=== PATIENT | male | born 1945 | race Caucasian/White ===

== ENCOUNTER 2016-10-23 23:01 | Inpatient (IN) | payer OTHER ==
[2016-10-23] MEDS ORDERED: IOPAMIDOL 370 (76%) 100 ML VIAL IV ONE (23:02)
[2016-10-23 23:52] LABS: ABSOLUTE NEUTROPHIL COUNT 3.6 K/mm3 (1.8-7.7); BASO % 0.7 % (0.2-1.0); EOS # 0.1 (0.0-0.5); EOS % 1.1 % (0.9-2.9); HEMATOCRIT 44.2 % (32.0-52.0); HEMOGLOBIN 15.1 gm/l (14.0-18.0); IMM NEUT # 0.1 K/mm3 (0-0.2); IMM NEUT% 0.9 % (0-1); LYMPH # 1.1 (1.0-4.8); LYMPH % 19.9 % (15-45); MEAN CELL VOLUME 92.3 fl (80.0-94.0); MEAN CORPUSCULAR HEMOGLOBIN 31.5 pg (27.0-31.0); MEAN CORPUSCULAR HGB CONC 34.2 g/dl (33.0-37.0); MEAN PLATELET VOLUME 10.3 fl (7.4-10.4); MONO # 0.7 (0.0-0.8); MONO % 12.5 % (4-12); NEUT % 64.9 % (43-75); PLATELET COUNT 98 K/mm3 (130-400)
[2016-10-24 00:03] LABS: ALB/GLOB RATIO 1.2 (>1.0); CALCIUM 8.8 mg/dL (8.6-10.3)
[2016-10-24 00:09] LABS: TROPONIN I 0.02 ng/ml (0.0-0.06)
[2016-10-24 00:12] LABS: CKMB ISOENZYME 1.6 ng/ml (0.6-6.3)
[2016-10-24] MEDS ORDERED: IBUPROFEN 600 MG TABLET ONE (00:12)
[2016-10-24] MEDS ORDERED: ALBUTEROL/IPRATROPIUM 2.5/0.5 MG 3 ML/EACH DOSE ONE ×2 (00:17→02:59)
[2016-10-24 04:09] VITALS: BMI 23.0
--- NOTE | 2016-10-24 07:31 | RAD ---
History: Cough with chest pain. Comparison: 03/27/2016. Technique: 2 views Findings: 2 views of the chest demonstrate evidence of prior median sternotomy. The heart size is stable. No focal infiltrate, effusion or pneumothorax is seen. The hilar and mediastinal structures are intact. Impression: 1. Prior median sternotomy. 2. No active intrathoracic process.
--- NOTE | 2016-10-24 07:38 | CT ---
Exam: CT angiogram chest with contrast Comparison: Radiographs 10/24/[address] abdomen 04/30/2011 History: Cough, hypoxemia and tachycardia. Technique: CT angiogram of the chest was obtained following the administration of 80 mL Isovue-370 intravenous contrast using a CT angiogram pulmonary embolism protocol which was supplemented with multiplanar 3-D reformations constructed at an independent workstation. Findings: Examination is mildly limited due to motion artifact. There is no evidence of acute pulmonary thromboembolic disease to the proximal subsegmental level. There is mild diffuse bronchial wall thickening. There is no focal consolidation. There is no significant mucous plugging or atelectasis. The mediastinal and hilar lymph nodes are more significant for number rather than size, and are most prominent within the right hilum measuring up to 1.2 cm in short axis diameter, which is just above the upper limits of normal. Some calcifications are seen within the subcarinal lymph node stations. Postsurgical changes of median sternotomy and CABG are noted. There is no pleural or pericardial effusion. Limited evaluation of the upper abdomen is without acute or concerning abnormality. IMPRESSION: 1. No evidence of acute pulmonary thromboembolic disease through the proximal subsegmental level. 2. Diffuse bronchial wall thickening without significant mucous plugging or atelectasis. 3. Mildly prominent mediastinal and hilar lymph nodes, right slightly greater than left, which are more significant for number rather than size although are mildly enlarged by size criteria. These are of uncertain etiology and significance. These may simply be reactive. Preliminary report transmitted to the emergency department from [facility] [facility] at 0239 hours 10/24/2016.
[2016-10-24] MEDS ORDERED: ACETAMINOPHEN 325 MG TABLET PO PRN (07:43)
[2016-10-24] MEDS ORDERED: MENTHOL/CETYLPYRD 1 EACH LOZENGE PO PRN (07:43)
[2016-10-24] MEDS ORDERED: BISACODYL 10 MG SUP PR PRN (07:43)
[2016-10-24] MEDS ORDERED: CALCIUM CARBONATE 500 MG TAB.CHEW PO PRN (07:43)
[2016-10-24] MEDS ORDERED: BLISTEX LIPSTICK 1 EACH TP PRN (07:43)
[2016-10-24] MEDS ORDERED: SODIUM CHLORIDE 0.9% 100 ML IV PRN (07:43)
[2016-10-24] MEDS ORDERED: MAGNESIUM HYDROXIDE 30 ML UDCUP PO PRN (07:43)
[2016-10-24] MEDS ORDERED: BISACODYL 5 MG TABLET.EC PO PRN (07:43)
[2016-10-24] MEDS ORDERED: INSULIN ASPART (DOSE) 100 UNITS/1 ML SUB-Q PRN (07:43)
[2016-10-24] MEDS ORDERED: SODIUM CHLORIDE 0.9% 1,000 ML IV SCH (07:45)
[2016-10-24] MEDS ORDERED: NICOTINE POLACRILEX 2 MG LOZENGE PO PRN (08:02)
[2016-10-24] MEDS ORDERED: PUMP TUBING ONE (08:31)
[2016-10-24] MEDS: INSULIN GLARGINE (DOSE) 100 UNITS/ML UNIT SUB-Q SCH (08:40)
[2016-10-24] MEDS: ENOXAPARIN SODIUM 40 MG/0.4 ML SYRINGE SUB-Q SCH (08:43)
[2016-10-24] MEDS: DOCUSATE SODIUM 100 MG CAPSULE PO SCH ×2 (08:45→20:32)
--- NOTE | 2016-10-24 09:03 | HP ---
Garrett R[place]em[place] [id number] DATE OF ADMISSION: 10/24/2016 CHIEF COMPLAINT: Cough. HISTORY OF PRESENT ILLNESS: The patient is a 71-year-old HIV positive male who presents regarding an approximately three day history of cough with dyspnea. He has also noted leg pains, left greater than right in his thighs. He describes chest congestion with minimal sputum noted. Sats in the emergency department were 87% to 89% on room air. He has had some exposure to illnesses with his granddaughter recently, however, in the emergency room his influenza test was negative. he notes some aching. He denies fevers. Denies falls, but was feeling a little dizzy. No vomiting. He does not have a significant prior history of dyspnea, but does smoke and has chronic obstructive pulmonary disease. PAST MEDICAL HISTORY: Remarkable for HIV, he reports his last CD4 count was 600 in April. He has been tested since then, but he has not heard the results. He has been HIV positive since 1987, history of smoking, chronic obstructive pulmonary disease, coronary artery disease with a myocardial infarction and a history of a bypass. He has diabetes mellitus type 2, but does not check his glucose regularly and is not sure if he takes any medicines for this, history of hypertension, history of posttraumatic stress disorder. PAST SURGICAL HISTORY: Remarkable for coronary artery bypass graft, right and left inguinal hernia repair, and a left inguinal hernia re-repair. He has had an appendectomy as well. ALLERGIES: LISTED CLINDAMYCIN AND REPORTED HISTORY OF ANAPHYLAXIS TO PENICILLIN. MEDICATIONS: He is not sure what he takes. He believes he takes: 1. Aspirin 81 mg daily. 2. Atazanavir 300 mg by mouth daily. 3. Clopidogril 75 mg by mouth daily. 4. Genvoya by mouth daily. 5. Guaiifenesin 400 mg by mouth three times daily for nasal drip and congestion. 6. Metoprolol tartrate 25 mg by mouth twice daily. 7. Pravastatin 20 mg half by mouth every evening. 8. Senna 8.6 mg by mouth twice daily as needed. 9. Sucralfate 10 gm by mouth three times daily with food. 10. Tamsulosin 0.4 mg at bedtime. SOCIAL HISTORY: He is . He lives in an house here at [place] with two cats. He has two kids and two grandkids. He is a of the [employer]. He smokes one pack of cigarettes per day. Denies alcohol use. Does use marijuana as needed. Amish: No particular mandaen affiliation. Hobbies: He used to collect bikes, but has not been as active recently. FAMILY HISTORY: Father at 78 of cancer of the esophagus or possibly mesothelioma. Mom at age 86. REVIEW OF SYSTEMS: Eyes are okay. Ears okay. He had tinnitus. Nose is okay. Mouth is okay. Teeth: He reports he only has a few left. No acute complaints. Neck has been okay. Chest: No particular pain, but he does note some abdominal discomfort possibly related to coughing hard. No heart complaints. No angina. No urinary complaints. No testicular complaints. He notes left thigh is somewhat achy and sore. He has some difficulty walking. He can feel dizzy at times and has some balance problems. Skin has been okay. No ankle swelling. Feet have been okay. He does report history of stroke in 1987 and had lost some of his vision particularly on the left and his central vision is affected as well and it is hard to read. He does not have a POLST form, but on discussion he wishes to be do not intubate, do not resuscitate. PHYSICAL EXAMINATION: GENERAL: Frail appearing male slightly hard of hearing and thin. VITAL SIGNS: Temperature 98.3, pulse 85, blood pressure 117/81, respirations 20, saturation 97% on 2 liters. HEENT: Head is normocephalic, atraumatic. Eyes are unremarkable, not icteric, but some slightly discoloration suggested. Ears: Some cerumen on the left, the right appears unremarkable. Nose is unremarkable without discharge. Mouth: He has a lower bridge and the upper edentulous. Posterior pharynx is unremarkable. NECK: Supple. No masses, no jugular venous distention, no thyromegaly. BACK: With adiposity noted at the upper back near the base of the neck, mild. No costovertebral angle tenderness to percussion noted. LUNGS: Slightly decreased breath sounds more on the right than the left, but no significant crackles are noted. Somewhat spastic cough is noted. HEART: Regular rate and rhythm. ABDOMEN: Reported some tenderness on the muscle wall in the right upper quadrant, but there is no rebound, no guarding. Bowel sounds are quiet, but present. GENITOURINARY: Deferred. EXTREMITIES: His thighs are thin, but there is no redness, no masses, no focal tenderness. Knees, ankles, feet are grossly unremarkable. No ulcerations, cellulitis, or other changes noted. Pulses are good. Hands are unremarkable. NEUROLOGICAL: Patient is oriented x3, but has difficulty listing his medicines. Some tremor noted and some generalized weakness with difficulty with mobility in bed noted. LABORATORY: White count 5.6, hemoglobin 15.1, platelets 98. Sodium 132, potassium 3.8, chloride 100, CO2 23, BUN 18, creatinine 1.2, glucose 287. AST 47, ALT 44, alk phos 76. Troponin 0.02, CK-MB 1.6, albumin 4.0, globulin 3.4. Influenza A and B testing are negative. DIAGNOSTICS: CT of the chest shows no pulmonary embolism, no effusion, no thoracic aortic aneurysm, some bronchial wall thickening, no focal consolidation, no pneumothorax, no pleural effusion, enlarged hilar lymph nodes, small calcified subcarinal lymph node noted. Chest x-ray sternotomy, no acute changes. EKG sinus tachycardia, occasional supraventricular premature contractions. ASSESSMENT AND PLAN: 1. Bronchitis with hypoxia and respiratory distress, suspect viral causes. Plan oxygen and monitor saturations. [facility] We wish to avoid drug interactions. We will holding on steroids and antibiotics for now and discussion IV whether to address this in a patient with a reported normal CD4 count. 2. Human immunosuppressive virus reported. Patient reports normal CD4 count. He does not volunteer his viral level. CD4 was reported to 600 last year. We will check records from [facility] to see if there are any other results such as viral load and more recent CD4 counts. At this point, if CD4 count is in normal range would not estimate him to be a special immunosuppression risk. 3. Diabetes mellitus type 2 with uncertain control. We will check an A1c. The patient does not check glucose and is not sure about his medicines. We will plan capillary blood glucoses with Lantus and sliding scale. We will also try to get records from [facility]. 4. History of coronary artery disease. Troponin normal. We will continue on aspirin. We will try to check on his regular medicines. 5. Do not intubate, do not resuscitate. Discussed today. 6. History of anaphylaxis to penicillin. Would prefer to avoid penicillins or cephalosporins in this case. 7. Smoking. The patient declines nicotine replacement, but will try to make available as needed. 8. Venous thrombosis prophylaxis. Anticipate enoxaparin. 9. Leg pain, uncertain significance. His exam is unremarkable and his CTA of the chest did not show any blood clots. We will check a CPK at this time. 10. Request for other labs and chart notes are still pending. JOB: [id number] CC: [facility] in [place]
[2016-10-24] MEDS: ALBUTEROL/IPRATROPIUM 2.5/0.5 MG 3 ML/EACH DOSE NEB PRN ×3 (11:07→20:24)
[2016-10-24] MEDS ORDERED: SENNOSIDES 8.6 MG TABLET PO PRN (11:49)
[2016-10-24] MEDS ORDERED: ATAZANAVIR SULFATE 300 MG PO SCH (12:00)
[2016-10-24] MEDS ORDERED: [UNRECOGNIZED DRUG - OTHER] PO SCH (12:00)
[2016-10-24] MEDS: CLOPIDOGREL BISULFATE 75 MG TABLET PO SCH (13:45)
[2016-10-24] MEDS: METOPROLOL TARTRATE 25 MG TABLET PO SCH ×2 (13:45→20:32)
[2016-10-24] MEDS: GUAIFENESIN 400 MG TABLET PO PRN ×2 (13:46→23:39)
[2016-10-24] MEDS ORDERED: SUCRALFATE 1 G TABLET PO SCH (16:00)
[2016-10-24 17:45] LABS: A1C-GLYCOHEMOGLOBIN 1.1 g/dl; HEMOGLOBIN-GLYCO 13.8 g/dl
[2016-10-24] MEDS ORDERED: PRAVASTATIN SODIUM 20 MG TABLET PO SCH (20:00)
[2016-10-25 06:15] LABS: ABSOLUTE NEUTROPHIL COUNT 3.4 K/mm3 (1.8-7.7); BASO % 0.5 % (0.2-1.0); EOS % 0.2 % (0.9-2.9); HEMATOCRIT 43.4 % (32.0-52.0); HEMOGLOBIN 14.7 gm/l (14.0-18.0); IMM NEUT% 0.3 % (0-1); LYMPH # 1.7 (1.0-4.8); LYMPH % 29.5 % (15-45); MEAN CELL VOLUME 93.3 fl (80.0-94.0); MEAN CORPUSCULAR HEMOGLOBIN 31.6 pg (27.0-31.0); MEAN CORPUSCULAR HGB CONC 33.9 g/dl (33.0-37.0); MONO # 0.6 (0.0-0.8); MONO % 10.5 % (4-12); PLATELET COUNT 88 K/mm3 (130-400)
[2016-10-25 06:24] LABS: ALB/GLOB RATIO 1.1 (>1.0); ALBUMIN 3.7 gm/dL (3.5-5.7); CALCIUM 8.6 mg/dL (8.6-10.3)
[2016-10-25] MEDS: INSULIN GLARGINE (DOSE) 100 UNITS/ML UNIT SUB-Q SCH (08:29)
[2016-10-25] MEDS: ENOXAPARIN SODIUM 40 MG/0.4 ML SYRINGE SUB-Q SCH (08:30)
[2016-10-25] MEDS ORDERED: ASPIRIN (ENTERIC COATED) 81 MG TABLET.EC PO SCH (09:00)
[2016-10-25] MEDS: CLOPIDOGREL BISULFATE 75 MG TABLET PO SCH (09:47)
[2016-10-25] MEDS: DOCUSATE SODIUM 100 MG CAPSULE PO SCH (09:47)
[2016-10-25] MEDS: METOPROLOL TARTRATE 25 MG TABLET PO SCH (09:47)
--- NOTE | 2016-10-25 10:27 | PDOC5 ---
ADMIT DATE: 10/24/16 DISCHARGE DATE: 10/25/16 ADMISSION DIAGNOSES: Bronchitis, COPD exacerbation PROCEDURES PERFORMED THIS HOSPITALIZATION: Chest CTA--no PE, bronchial wall thickening and lympadenopathy CONSULTATIONS: None HOSPITAL COURSE: This is a 71 year old who presented with a three day history of cough and dyspnea. He had mild hypoxemia. He was admitted for viral bronchitis and COPD exacerbation. On 10/25 he is not requiring O2 and feels that he is "99% better". - Exam Vital Signs Temperature 98.7 F 10/25/16 07:07 Pulse Rate 84 10/25/16 07:07 Respiratory Rate 18 10/25/16 07:07 Blood Pressure 126/76 10/25/16 07:07 O2 Saturation by Pulse Oximetry 95 10/25/16 08:34 Oxygen Delivery Method Room Air Oxygen Flow Rate 0 General: Alert, Oriented x3, Cooperative, No Acute Distress HEENT: Mucous membr. moist/pink Lungs: Other (poor air movement and slight exp wheezes throughout) Cardiovascular: Regular Rate and Rhythm Abdomen: Soft, No Tenderness, No Normal Bowel Sounds Extremities: Normal Pulses, No Edema Skin: Normal Color Neurological: Normal Speech Psych/Mental Status: Normal Mood - Results Laboratory 10/25/16 05:30 10/25/16 05:30 10/25/16 10/25/16 10/24/16 07:39 05:30 21:05 RBC 4.65 L MCH 31.6 H POC Capillary Glucose 169 H 163 H Hemoglobin A1c 10/24/16 10/24/16 10/24/16 16:46 11:40 08:50 RBC MCH POC Capillary Glucose 188 H 209 H Hemoglobin A1c 9.2 H - Problems:Assessment/Plan (1) Bronchitis Status: Acute Assessment/Plan: Acute Presumed viral infection, present on admit, improving, no O2 requirement. Had mild acute respiratory failure with saturation of 88% and O2 requirement at the time of admit. (2) HIV antibody positive Status: Chronic Assessment/Plan: Stable with good CD4 count, continue usual medications. (3) Thrombocytopenia associated with AIDS Status: Chronic Assessment/Plan: Related to HIV and treatment. (4) DM2 (diabetes mellitus, type 2) Qualifiers: Diabetes mellitus complication status: without complication Diabetes mellitus technician terminal and repeater insulin use: without technician terminal and repeater use Qualifier Code: (E11.9 ) Type 2 diabetes mellitus without complications Status: Chronic Assessment/Plan: DM is not well controlled at baseline, A1c 9.2%, should have f/u and improved treatment by PCP. (5) Nicotine dependence Qualifiers: Nicotine product type: cigarettes Substance use status: uncomplicated Qualifier Code: (F17.210) Nicotine dependence, cigarettes, uncomplicated Status: Chronic Assessment/Plan: Cessation counseling (6) CAD (coronary artery disease) Qualifiers: Coronary Disease-Associated Artery/Lesion type: [place] artery [place] vs. transplanted heart: [place] heart Associated angina: without angina Qualifier Code: (I25.10) Atherosclerotic heart disease of [place] coronary artery without angina pectoris Status: Chronic Assessment/Plan: No current sx, continue usual medication. (7) COPD (chronic obstructive pulmonary disease) with acute bronchitis Status: Chronic Assessment/Plan: Mild acute exacerbation due to viral bronchitis. No change in treatment. - Discharge Plan Forms: Discharge Instructions Condition: Stable Disposition: Home
[2016-10-25 11:35] VITALS: BP 122/81
== END 2016-10-25 13:00 | disposition home or self-care (01) | DRG 192 ==
LOC: ED 23:01 → MS 10-24 03:22
PROVIDERS: ADMIT Family Medicine; ATTEND Family Medicine
DX: J44.0 Chronic obstructive pulmonary disease with (acute) lower respiratory infection (principal); J44.1 Chronic obstructive pulmonary disease with (acute) exacerbation; Z21 Asymptomatic human immunodeficiency virus [HIV] infection status; M79.606 Pain in leg, unspecified; I25.10 Atherosclerotic heart disease of native coronary artery without angina pectoris; E11.9 Type 2 diabetes mellitus without complications; J40 Bronchitis, not specified as acute or chronic; R06.00 Dyspnea, unspecified; Z66 Do not resuscitate; F17.210 Nicotine dependence, cigarettes, uncomplicated; D69.6 Thrombocytopenia, unspecified

== ENCOUNTER 2016-11-08 21:35 | Emergency (ER) | payer OTHER ==
[2016-11-08] MEDS ORDERED: EPINEPHRINE 1 MG/ML 1ML AMP ONE (21:50)
[2016-11-08] MEDS ORDERED: METHYLPRED SOD SUCCINATE 125 MG VIAL ONE (21:53)
[2016-11-08] MEDS ORDERED: DIPHENHYDRAMINE HCL 50 MG/1 ML VIAL ONE (21:53)
[2016-11-08] MEDS ORDERED: SODIUM CHLORIDE 0.9% 1,000 ML ONE (22:02)
[2016-11-08] MEDS ORDERED: FAMOTIDINE 10 MG/ML 2ML VIAL ONE (22:03)
[2016-11-08 22:22] LABS: ABSOLUTE NEUTROPHIL COUNT 11.7 K/mm3 (1.8-7.7); BASO # 0.1 K/mm3 (0.0-0.2); BASO % 0.5 % (0.2-1.0); EOS % 0.3 % (0.9-2.9); HEMATOCRIT 44.1 % (32.0-52.0); HEMOGLOBIN 15.1 gm/l (14.0-18.0); IMM NEUT # 0.2 K/mm3 (0-0.2); IMM NEUT% 1.3 % (0-1); LYMPH # 2.2 (1.0-4.8); LYMPH % 14.6 % (15-45); MEAN CELL VOLUME 92.1 fl (80.0-94.0); MEAN CORPUSCULAR HEMOGLOBIN 31.5 pg (27.0-31.0); MEAN CORPUSCULAR HGB CONC 34.2 g/dl (33.0-37.0); MEAN PLATELET VOLUME 10.3 fl (7.4-10.4); MONO # 0.9 (0.0-0.8); NEUT % 77.3 % (43-75); PLATELET COUNT 285 K/mm3 (130-400); RED CELL DISTRIBUTION WIDTH 12.1 % (11.5-14.5)
[2016-11-08 22:28] LABS: INR 0.97; PROTHROMBIN TIME 10.2 SECONDS (9.3-11.4)
[2016-11-08 22:33] LABS: ALB/GLOB RATIO 0.8 (>1.0); ALBUMIN 3.8 gm/dL (3.5-5.7); CALCIUM 9.8 mg/dL (8.6-10.3); MAGNESIUM 1.9 mg/dL (1.9-2.7)
[2016-11-09] MEDS ORDERED: DIPHENHYDRAMINE HCL 50 MG CAPSULE ONE (00:10)
--- NOTE | 2016-11-09 08:15 | RAD ---
PORTABLE CHEST RADIOGRAPH HISTORY: Shortness of breath and hives. Frontal portable chest radiograph dated 11/08/2016. COMPARISON: To 717. FINDINGS: FOCAL AIRSPACE OPACITY: Multifocal airspace opacity most notable at the right suprahilar aspect, suspicious for. PLEURAL EFFUSION: None. CARDIOMEDIASTINAL SILHOUETTE: Nonenlarged. Aortic arch calcification. PNEUMOTHORAX: None identified. OSSEOUS STRUCTURES: Evidence of prior sternotomy, correlate for prior bypass surgery. Redemonstration of small high attenuation foci projecting over the axillary regions. IMPRESSION: 1. Scattered airspace opacities most notable at the right suprahilar aspect, suspicious for multifocal pneumonia. Recommend follow-up imaging to ensure resolution of airspace abnormality. 2. Evidence of prior bypass surgery.
== END 2016-11-09 00:34 | disposition home or self-care (01) ==
LOC: ED 21:35
DX: J18.9 Pneumonia, unspecified organism (principal); J44.9 Chronic obstructive pulmonary disease, unspecified; L23.9 Allergic contact dermatitis, unspecified cause; L50.9 Urticaria, unspecified; R00.0 Tachycardia, unspecified; T78.2XXA Anaphylactic shock, unspecified, initial encounter; F17.210 Nicotine dependence, cigarettes, uncomplicated; I10 Essential (primary) hypertension; E11.9 Type 2 diabetes mellitus without complications; Z79.84 Long term (current) use of oral hypoglycemic drugs
CPT/HCPCS: 85025; 80053; 83735; 85610; 84484; 71010; 94640; 96375; 99284 ×2; 96372; 96374; A9270; J1200; J2930; J7030; J0171

== ENCOUNTER 2016-11-09 13:29 | Emergency (ER) | payer OTHER ==
[2016-11-09] MEDS ORDERED: DOCUSATE SODIUM 10 MG/ML SOLN.DROP ONE (14:19)
[2016-11-09 14:20] LABS: SPECIFIC GRAVITY 1.015 (1.001-1.030); URINE BILIRUBIN NEGATIVE (NEGATIVE); URINE BLOOD NEGATIVE (NEGATIVE); URINE GLUCOSE (UA) 3+ (NEGATIVE); URINE LEUKOCYTE ESTERASE NEGATIVE (NEGATIVE); URINE NITRITE NEGATIVE (NEGATIVE); URINE PROTEIN NEGATIVE (NEGATIVE); URINE UROBILINOGEN NORMAL (0-1 mg/dl)
[2016-11-09 14:22] LABS: URINE APPEARANCE CLEAR; URINE COLOR YELLOW
== END 2016-11-09 15:18 | disposition home or self-care (01) ==
LOC: ED 13:29
DX: E11.65 Type 2 diabetes mellitus with hyperglycemia (principal); H61.22 Impacted cerumen, left ear; I10 Essential (primary) hypertension; F17.210 Nicotine dependence, cigarettes, uncomplicated
CPT/HCPCS: 81003; 99283 ×2; 82962; A9270

== ENCOUNTER 2016-11-11 06:44 | Emergency (ER) | payer OTHER ==
[2016-11-11] MEDS ORDERED: IOPAMIDOL 370 (76%) 100 ML VIAL IV ONE (06:45)
[2016-11-11] MEDS ORDERED: EPINEPHRINE 1 MG/ML 1ML AMP ONE (06:58)
[2016-11-11] MEDS ORDERED: DIPHENHYDRAMINE HCL 50 MG/1 ML VIAL ONE (07:04)
[2016-11-11] MEDS ORDERED: LACTATED RINGERS 1,000 ML ONE ×2 (07:05→09:09)
[2016-11-11] MEDS ORDERED: FAMOTIDINE 10 MG/ML 2ML VIAL ONE ×2 (07:05→07:26)
[2016-11-11] MEDS ORDERED: ALBUTEROL/IPRATROPIUM 2.5/0.5 MG 3 ML/EACH DOSE ONE (07:06)
[2016-11-11 07:17] LABS: ABSOLUTE NEUTROPHIL COUNT 12.1 K/mm3 (1.8-7.7); BASO % 0.3 % (0.2-1.0); EOS % 0.1 % (0.9-2.9); HEMATOCRIT 45.1 % (32.0-52.0); HEMOGLOBIN 15.7 gm/l (14.0-18.0); IMM NEUT # 0.2 K/mm3 (0-0.2); IMM NEUT% 1.1 % (0-1); LYMPH # 1.2 (1.0-4.8); LYMPH % 8.3 % (15-45); MEAN CELL VOLUME 91.5 fl (80.0-94.0); MEAN CORPUSCULAR HEMOGLOBIN 31.8 pg (27.0-31.0); MEAN CORPUSCULAR HGB CONC 34.8 g/dl (33.0-37.0); MEAN PLATELET VOLUME 10.3 fl (7.4-10.4); MONO # 0.4 (0.0-0.8); MONO % 2.6 % (4-12); NEUT % 87.6 % (43-75); PLATELET COUNT 271 K/mm3 (130-400); RED CELL DISTRIBUTION WIDTH 12.3 % (11.5-14.5)
[2016-11-11] MEDS ORDERED: DEXAMETHASONE SOD PHOS 10 MG/1 ML VIAL ONE (07:26)
[2016-11-11 07:28] LABS: VENOUS BLOOD GAS HCO3 22.4 mmol/L (22.0-27.0)
[2016-11-11 07:32] LABS: ALB/GLOB RATIO 0.8 (>1.0); ALBUMIN 3.5 gm/dL (3.5-5.7); CALCIUM 9.2 mg/dL (8.6-10.3); MAGNESIUM 2.1 mg/dL (1.9-2.7)
[2016-11-11 07:39] LABS: INR 1.03; PROTHROMBIN TIME 10.8 SECONDS (9.3-11.4)
[2016-11-11] MEDS ORDERED: PROCHLORPERAZINE 5 MG/ML 2 ML VIAL ONE (07:40)
[2016-11-11 07:55] LABS: D-DIMER 6.79 mg/L FEU (0.20-0.50)
[2016-11-11] MEDS ORDERED: CEFTRIAXONE 1 GRAM DUPLEX 50 ML IV ONE (09:02)
[2016-11-11] MEDS ORDERED: DOXYCYCLINE HYCLATE 100 MG IV VIAL ONE (09:16)
[2016-11-11] MEDS ORDERED: SODIUM CHLORIDE 0.9% 100 ML IV ONE (09:16)
--- NOTE | 2016-11-11 09:20 | CT ---
CHEST CTA HISTORY: Dyspnea, elevated d-dimer. TECHNIQUE: Following the administration of 80 mL Isovue-370 intravenous contrast, contiguous axial images were acquired from the thoracic inlet to the diaphragmatic hiatus for CT pulmonary angiography. 3-D imaging was not performed. COMPARISON: 10/24/2016. FINDINGS: PULMONARY ARTERIAL TREE: Technically adequate enhancement: No dominant filling defects. THORACIC AORTA: Normal caliber. No evidence of dissection. Evidence of prior bypass procedure. LUNGS: Interval development of multifocal airspace abnormality compatible with multifocal pneumonia, worst at the right upper and right lower lobes with presumed ill-defined inflammatory lesion of the right lower lobe measuring 1.9 cm in size as well as a cavitary lesion of the right upper lobe measuring 1.4 cm in size. An ill-defined lesion of the left upper lobe measures 1.7 cm in size. Prominent bronchial wall thickening is noted.. No pleural effusion. TONYA AND MEDIASTINUM: A right hilar lymph node is increased in size from 9 mm to 15 mm. Subcarinal lymph node is increased in size from 6 mm to 12 mm. AXILLAE: No grossly enlarged lymph nodes. UPPER ABDOMEN:No gross mass effect. OSSEOUS STRUCTURES: Poststernotomy change. IMPRESSION: 1. No CTA evidence of proximal order pulmonary embolus. 2. Interval development of multifocal pneumonia with multiple inflammatory nodular lesions, including small cavitary lesion of the right upper lobe measuring 1.4 cm in size. Atypical infection is not excluded. Associated right hilar and mediastinal adenopathy. Findings discussed with Dr. Yañez of the Emergency Medicine clinical service on 11/11/2016 at 0914 hours.
[2016-11-11] MEDS ORDERED: LEVOFLOXACIN 750 MG/D5W 150 ML 150 ML IV ONE (10:31)
[2016-11-11] MEDS ORDERED: VANCOMYCIN HCL 1.75 G in SODIUM CHLORIDE 0.9% 500 ML IV ONE (10:45)
== END 2016-11-11 12:32 | disposition short-term general hospital (02) ==
LOC: ED 06:44
DX: A41.9 Sepsis, unspecified organism (principal); R65.21 Severe sepsis with septic shock; J85.1 Abscess of lung with pneumonia; J44.9 Chronic obstructive pulmonary disease, unspecified; B20 Human immunodeficiency virus [HIV] disease; I25.2 Old myocardial infarction; I10 Essential (primary) hypertension; E11.9 Type 2 diabetes mellitus without complications; F17.210 Nicotine dependence, cigarettes, uncomplicated
CPT/HCPCS: 83605; 83690; 83880; 85379; 82803; 85025; 80053; 83735; 85610; 84484; 71275; 87804; 94640; 96375 ×4; 99285; 96372; 96361 ×2; 96365; 96367; 93005; 99291; J1200; J0780; J1100; J3370; J7120 ×2; J7040; J7050; J1956; J0171; Q9967; J0696

== ENCOUNTER 2016-11-24 13:41 | Emergency (ER) | payer OTHER | END 2016-11-24 14:13 | disposition home or self-care (01) | LOC: ED 13:41 | DX: Z48.02 Encounter for removal of sutures (principal); J44.9 Chronic obstructive pulmonary disease, unspecified; G43.909 Migraine, unspecified, not intractable, without status migrainosus; I25.2 Old myocardial infarction; E11.9 Type 2 diabetes mellitus without complications; I10 Essential (primary) hypertension; B20 Human immunodeficiency virus [HIV] disease; F17.210 Nicotine dependence, cigarettes, uncomplicated ==